=== PATIENT | female | born 1990 | race Two or more races ===

== ENCOUNTER 2023-12-22 21:59 | Emergency (ER) | payer OTHER ==
[~2023-12-22] VITALS: Ht 177.8 cm; Wt 100.0 kg
[2023-12-22 23:05] VITALS: TEMP 97.5
[2023-12-22 23:06] VITALS: PULSE 61; RESP 14; O2SAT 100
[2023-12-23] MEDS: SODIUM CHLORIDE 0.9% 1,000 ML IV ONE (01:15)
[2023-12-23 01:24] LABS: Basophils # (auto) 0 10 ^3/uL (0-0.2); Basophils % (auto) 0.5 % (0.0-2.0); Eosinophils # (auto) 0 10 ^3/uL (0-0.8); Eosinophils % (auto) 0.2 % (0.0-7.0); Hematocrit 35.3 % (36.0-46.0); Hemoglobin 11.6 g/dL (12.2-16.2); Lymphocytes # (auto) 1.3 10 ^3/uL (0.4-5.4); Mean Corpuscular Hemoglobin 25.9 pg (28.0-32.0); Mean Corpuscular Hgb Conc. 32.8 g/dL (32.0-36.0); Monocytes # (auto) 0.4 10 ^3/uL (0-1.3); Monocytes % (auto) 4.2 % (0.0-12.0); Neutrophils # (auto) 7.1 10 ^3/uL (1.6-8.6); Neutrophils % (auto) 80.1 % (37.0-80.0); Red Blood Cells 4.47 10^6/uL (4.0-5.20); Red Cell Distribution Width 15.8 % (11.8-14.3); White Blood Cell 8.8 10^3/uL (4.4-10.8)
[2023-12-23 01:46] LABS: Alanine Aminotransferase 19 U/L (7-40); Albumin 4.3 g/dL (3.2-4.8); Alkaline Phosphatase 82 U/L (46-116); Anion Gap 3 (5-15); Aspartate Aminotransferase 14 U/L (13-40); Blood Alcohol < 3.0 mg/dL (<10); Calcium 8.9 mg/dL (8.5-10.1); Carbon Dioxide 27 mmol/L (20-30); Chloride 110 mmol/L (98-107); Glucose 121 mg/dL (74-106); Potassium 3.6 mmol/L (3.5-5.1); Sodium 140 mmol/L (136-145)
[2023-12-23 01:47] LABS: Acetaminophen < 2.0 UG/ML (10.0-20.0); Bilirubin, Total 0.3 mg/dL (0.2-1.0); Total Protein 6.9 g/dL (5.7-8.2)
[2023-12-23 01:48] LABS: Salicylate < 3.0 mg/dL (2.8-20.0)
[2023-12-23 01:55] LABS: BUN/Creatinine Ratio 6.5 (10.0-20.0); Blood Urea Nitrogen < 5 mg/dL (9-23)
[2023-12-23 02:00] VITALS: BP 95/45; PULSE 60; RESP 14; O2SAT 100
== END 2023-12-23 03:09 | disposition home or self-care (01) ==
LOC: ER 21:59 → EDBD 21:59 → ER 12-23 03:09
DX: R41.82 Altered mental status, unspecified (principal); R10.2 Pelvic and perineal pain; F41.9 Anxiety disorder, unspecified; F32.9 Major depressive disorder, single episode, unspecified
CPT/HCPCS: 36415; 70450; 72125; 80053; 80320; 80329; 84484; 84702; 85025; 96360; 99285; J7030